=== PATIENT | male | born 1935 | race Caucasian/White ===

== ENCOUNTER → 2017-04-18 | Outpatient (CLI) | payer OTHER | LOC: BHFA 11:30 | PROVIDERS: ATTEND Internal Medicine Cardiovascular Disease | DX: R00.2 Palpitations (principal); Z95.2 Presence of prosthetic heart valve ==

== ENCOUNTER → 2017-09-21 | Outpatient (CLI) | payer OTHER, BC | LOC: BMCIMAGING 08:24 | PROVIDERS: ATTEND Emergency Medicine | DX: S69.92XA Unspecified injury of left wrist, hand and finger(s), initial encounter (principal); W19.XXXA Unspecified fall, initial encounter ==

== ENCOUNTER 2017-09-25 12:38 | Observation (INO) | payer OTHER, BC ==
[2017-09-25] MEDS ORDERED: NS 1,000 ML IV ONE (12:57)
[2017-09-25] MEDS ORDERED: BACITRACIN IRRIGATION/NS 50,000 UNITS/1,000 ML BTL IRR ONE (12:57)
[2017-09-25] MEDS ORDERED: DIAZEPAM 5 MG TAB PO ONE (12:57)
[2017-09-25] MEDS ORDERED: diphenhydrAMINE 25 MG CAP PO ONE (12:57)
--- NOTE | 2017-09-25 13:20 | CPEKG ---
Heart Rate: 73 RR Interval: 822 P-R Interval: 208 QRSD Interval: 98 QT Interval: 400 QTC Interval: 441 P Cheshire: 56 QRS Cheshire: 86 T Wave Cheshire: 55 EKG Severity - OTHERWISE NORMAL ECG - EKG Impression: SINUS RHYTHM EKG Impression: BORDERLINE RIGHT AXIS DEVIATION Electronically Signed By: Faustino Elliott 25-Sep-2017 13:37:32
[2017-09-25] MEDS ORDERED: VANCOMYCIN 1 GM in NS 250 ML IV ONE (13:30)
[2017-09-25 13:38] LABS: PLATELET COUNT 93 10^3/uL (150-400)
[2017-09-25 13:48] LABS: INR 1.08 (0.83-1.16); PROTIME(PATIENT) 14.2 SEC (12.0-15.0)
--- NOTE | 2017-09-25 13:55 | PDGENHP ---
History & Physical Chief Complaint: chronotropic incompetence History of Present Illness: prior avr, ablation for at Relevant Physical Exam: s1s2 rrr. cta. ao3 Cardiorespiratory Assessment: sinus bradycardia. chronotropic incompetence for pacemaker implant
--- NOTE | 2017-09-25 13:56 | PDPROPOC ---
Sedation Plan of Care Sedation Plan of Care: vital signs stable, mental status noted, patient educated of risks, benefits, alternatives, patient can tolerate sedation ASA Classification: ASA 2 Planned drugs: fentanyl, midazolam Mallampati Score: Class 1 Mallampati Reference Image: Patient passed 3-3-2 rule?: Yes
[2017-09-25] MEDS ORDERED: fentaNYL 100 MCG/2 ML INJ ONE (14:07)
[2017-09-25] MEDS ORDERED: LIDO/EPI 1% **for epidural** 30 ML SDV ONE (14:07)
[2017-09-25] MEDS ORDERED: IOPAMIDOL (ISOVUE-300) 50 ML VIAL ONE (14:07)
[2017-09-25] MEDS ORDERED: MIDAZOLAM 2 MG/2 ML VIAL ONE (14:07)
[2017-09-25] MEDS ORDERED: LIDOCAINE 1% 300 MG/30 ML SDV ONE (14:07)
[2017-09-25] MEDS ORDERED: BUPIVACAINE 0.5% 30 ML SDV ONE (14:08)
--- NOTE | 2017-09-25 16:28 | CPEKG ---
Heart Rate: 60 RR Interval: 1000 QRSD Interval: 98 QT Interval: Invalid QTC Interval: Invalid QRS Ilion: 92 T Wave Ilion: 48 EKG Severity - ABNORMAL ECG - EKG Impression: Sinus rhythm EKG Impression: Frequent PAC Electronically Signed By: Faustino Elliott 25-Sep-2017 17:33:45
--- NOTE | 2017-09-25 16:36 | EPPROC ---
Electrophysiology Procedure Note: PROCEDURE PERFORMED: 1. Implantation of an A/V Pacemaker 2. Subclavian vein angiography 3. Fluoroscopy INDICATION: Chronotropic incompetence PROCEDURE NOTE: Patient presented to the cardiac catheterization laboratory in a fasting, post absorptive state . EP RN administered sedation. The left infraclavicular area was prepped and draped in the usual sterile fashion. Lidocaine plus bupivacaine was used for local anesthesia. Left subclavian venography was performed by injection of iodinated contrast into the left antecubital vein. This was done to assure patency of the vein and also to assess for any anatomical aberrations. Using a combination of blunt and sharp dissection and electrocautery, the dissection was carried down to the prepectoral fascia. A pocket was made in this anatomical plane. All bleeding was controlled with electrocautery. The pocket was packed with gauze soaked in antibiotic solution. Fluoroscopy was utilized during the entire procedure for venous access and placement of the leads. Using a direct stick technique the left extrathoracic axillary vein was accessed with 2 sticks using the modified Seldinger technique. Placement of the guidewires into the venous system was confirmed by low-pressure blood return and also by visualizing the guidewires advancing into the inferior vena cava. A purse string suture was applied around the guidewires. Two #7 Yoruba sheaths were advanced under fluoroscopic guidance over the guidewire. An active fixation ventricular lead was advanced into the right ventricular apex and screwed in place. An active fixation atrial lead was advanced into the right atrial appendage and screwed in place. The peel away sheaths were removed. Pacing thresholds, sensing parameters and lead impedances were measured. There was no diaphragmatic stimulation at maximum output. The leads were sutured to the prepectoral fascia with 3 nonabsorbable sutures each. The pocket was again inspected for any bleeding. The leads were attached to the pacemaker securely. The pacemaker was inserted into the pocket and secured in place with a nonabsorbable suture. Fluoroscopy was performed in NDIAYE and LUXEMBOURGER planes to verify right-sided placement of the leads. Also fluoroscopy of the pacemaker pocket was performed. The pacemaker pocket was closed in 3 layers with absorbable monocryl sutures and sushant. Appropriate dressing was applied. The patient left the cardiac catheterization laboratory in stable condition. Serial Numbers: 1. Device: [facility] Assurity MRI SN [id number] 2. Atrial Lead: [facility] Tendril 2088TC SN [id number] 3. Ventricular Lead: [facility] Tendril 2088TC SN [id number] Stimulation Thresholds & Impedance Measurements: 1. Atrial Lead P 2.2 mV 474 ohm 0.7 V 0.5 ms 2. Ventricular Lead R 7.7 mV R 719 ohm 0.4 V 0.5 ms Celestino Pacing Parameters 1. Pacing mode: DDDR 2. Lower rate: 60ppm 3. Upper tracking rate: 130 ppm 4. Upper sensor rate: 130 ppm Patient Problems: Problems Problem Status Onset Chronotropic incompetence Acute
[2017-09-25] MEDS: HYDROCODONE/APAP 5/325 TAB PO PRN (18:05)
[2017-09-25] MEDS: PRESERVISION AREDS2 FORMULA EYE VIT 1 EACH PO SCH (18:05)
[2017-09-25] MEDS: ALPRAZolam 0.25 MG TAB PO SCH (20:19)
[2017-09-25] MEDS ORDERED: NON-FORMULARY NEW DRUG (Vit A/Vit C/Vit E/Zinc/Copper [Preservision Areds Tablet] 1 EACH) PO SCH (21:00)
[2017-09-25] MEDS ORDERED: LISINOPRIL 2.5 MG TAB PO SCH (21:00)
[2017-09-26] MEDS: HYDROCODONE/APAP 5/325 TAB PO PRN ×2 (03:04→09:34)
[2017-09-26 04:26] LABS: PLATELET COUNT 92 10^3/uL (150-400)
[2017-09-26] MEDS ORDERED: ASPIRIN 325 MG TAB PO SCH (09:00)
[2017-09-26] MEDS ORDERED: SERTRALINE HCL 50 MG TAB PO SCH (09:00)
--- NOTE | 2017-09-26 09:00 | CPEKG ---
Heart Rate: 73 RR Interval: 822 P-R Interval: 208 QRSD Interval: 94 QT Interval: 412 QTC Interval: 454 P Nimitz: 68 QRS Nimitz: 99 T Wave Nimitz: 71 EKG Severity - BORDERLINE ECG - EKG Impression: SINUS RHYTHM EKG Impression: RIGHT AXIS DEVIATION EKG Impression: BORDERLINE R WAVE PROGRESSION, ANTERIOR LEADS EKG Impression: BORDERLINE T ABNORMALITIES, ANT-LAT LEADS Electronically Signed By: Manuel Olivarez 26-Sep-2017 09:35:02
[2017-09-26] MEDS: PRESERVISION AREDS2 FORMULA EYE VIT 1 EACH PO SCH (09:34)
[2017-09-26] MEDS: ALPRAZolam 0.25 MG TAB PO SCH (09:41)
--- NOTE | 2017-09-26 13:37 | ASDISCHSUM ---
Discharge Information Plan Status:Home with No Needs Medically Cleared to Leave:09/26/2017 Discharge Date:09/26/2017 12:27 PM CM D/C Disposition:Home, Routine, Self-Care ADT D/C Disposition:Home, Routine, Self-Care Projected Discharge Date:09/26/2017 12:27 PM Transportation at D/C: Discharge Delay Reason: Follow-Up Date:09/26/2017 12:27 PM Discharge Slot: Final Diagnosis: Placement Information Patient Contact Information Contact Name:DEMETRIO Relationship: [address] [facility] City:[place] Alternate Phone: State/Zip Code:[place] [address] Email: Financial Information Financial Class:Medicare Primary Plan Desc:MEDICARE OUTPATIENT Primary Plan Number:[id number] Secondary Plan Desc: OUT OF STATE [facility] Secondary Plan Number:[id number] Assessment Information LACE LACE Length of stay for Answers: Less than 1 day current admission Acuity / Level of Answers: No Care: Did the patient have an inpatient admission? Comorbidities - select Answers: Other Notes: sinus annalisa, chronotrop ic all that apply incompetence for pacemaker implant, # of Emergency department Answers: 1-2 visits in the last 6 months Score: 2 Date Signed: 09/26/2017 01:36 PM Electronically Signed By:Aida Ornelas RN Intervention Information Intervention Type:*CHAS-Signed Date of Service:09/26/2017 10:39 AM Patient Type:Observation Staff Member:Bonnie Stark Hours: Discipline: Severity: Comment:
[2017-09-26 13:55] VITALS: BP 109/66
--- NOTE | 2017-09-26 14:04 | GDS ---
[f rep st] DISCHARGE SUMMARY ADMISSION DIAGNOSES: 1. Bradycardia. 2. Chronotropic incompetence. 3. Planned pacemaker placement. DISCHARGE DIAGNOSES: 1. Status post successful pacemaker implantation. 2. Bradycardia. 3. Chronotropic incompetence. COURSE OF HOSPITALIZATION: This gentleman was seen in the clinic by Dr. Faustino Elliott on June 15. He was referred back to Dr. Elliott from Dr. Mccoy due to lightheadedness with exercise, at times s o severe that he would have to sit down. He had no syncopal events. It was recommended, after place ment of a Holter monitor showing minimum rate of 46 beats per minute and maximum of 84 beats per melani te with exertional lightheadedness as well as ventricular pauses up to 2.2 seconds and nonsustained a trial tachycardia, to proceed with a permanent pacemaker due to the chronotropic incompetence. He wa s in agreement with the surgery. He was taken to the EP lab by Dr. Faustino Elliott on September 25, 2017, whe re he placed a permanent pacemaker with no complications. He has been up ambulating with no lighthea dedness or dizziness. His pacemaker site is intact with no bleeding, induration, and only mild tende rness at this time. He is currently stable for discharge. ALLERGIES: Penicillin, sulfa, and amoxicillin. DISCHARGE MEDICATIONS: Zoloft 50 mg daily, Xanax 0.5 mg twice daily, multivitamin 1 tablet twice deep ly, lisinopril 2.5 mg daily, and aspirin 325 mg daily. PACEMAKER PLACEMENT: 1. [place] pacemaker placement, device serial number is [facility] [id number]. 2. Atrial lead, [facility] tendril, [id number] [id number]. 3. Ventricular lead, [facility] tendril 2087PC SN [id number]. SHIMON PACING PARAMETERS: 1. Pacing mode DDDR. 2. Lower rate 60 beats per minute. 3. Upper tracking rate 130 beats per minute. 4. Upper sensor rate 130 beats per minute. REASON FOR PLACEMENT: 1. Chronotropic incompetence. 2. Bradycardia. IMAGING: Chest x-ray on 09/26/2017 shows: 1. Clear lungs. 2. No pneumothorax following placement of left anterior chest wall dual lead pacemaker. 3. Midline sternal wires and prosthetic heart valve in good position. 4. Left anterior chest wall dual lead pacemaker is well situated with leads in the right atrium and right ventricle. DISCHARGE INSTRUCTIONS: At this time, he currently is stable for discharge. 1. Full left arm restrictions for 4 weeks. No lifting, pushing, or pulling greater than 10 pounds. 2. Avoid getting pacemaker site wet. 3. Okay to use Tylenol every 4 to 6 hours for pain, not to exceed 3000 mg daily. 4. Follow up with Dr. Elliott in 4 weeks. 5. Pacemaker check and wound check evaluation in 1 week at [facility]. He has an appointments al ready scheduled. His is present and all questions have been answered. At this time he is currently stable for eric tao. /[id number]/MODL
[2017-09-26] MEDS ORDERED: LISINOPRIL 2.5 MG TAB PO SCH (16:00)
[2017-09-27] MEDS ORDERED: MULTIVITAMINS W-MINERALS 1 EACH TAB PO SCH (09:00)
[2017-09-27] MEDS ORDERED: MULTIVITAMINS W MINERALS PO SCH (09:00)
[2017-09-27] MEDS ORDERED: LUT PO SCH (09:00)
== END 2017-09-26 12:27 | disposition home or self-care (01) ==
LOC: FCATH 12:38 → F2W 15:48
PROVIDERS: ADMIT Internal Medicine Cardiovascular Disease; ATTEND Internal Medicine Cardiovascular Disease
PROC: 0JH606Z Insertion of Pacemaker, Dual Chamber into Chest Subcutaneous Tissue and Fascia, Open Approach (ICD-10-PCS; principal; 2017-09-25)
PROC: 02HK3JZ Insertion of Pacemaker Lead into Right Ventricle, Percutaneous Approach (ICD-10-PCS; principal; 2017-09-25)
PROC: 02H63JZ Insertion of Pacemaker Lead into Right Atrium, Percutaneous Approach (ICD-10-PCS; principal; 2017-09-25)
DX: R00.1 Bradycardia, unspecified (principal); I45.89 Other specified conduction disorders
CPT/HCPCS: 33208; 71045; 71046; 93005; C1785; C1898; J2250; J3010; J3370; Q9967

== ENCOUNTER → 2018-04-17 | Outpatient (CLI) | payer OTHER, BC | LOC: BMCIMAGING 08:26 | PROVIDERS: ATTEND Family Medicine | DX: J90 Pleural effusion, not elsewhere classified (principal); J44.9 Chronic obstructive pulmonary disease, unspecified ==

== ENCOUNTER 2018-04-18 08:32 | Emergency (ER) | payer OTHER, BC ==
--- NOTE | 2018-04-18 08:50 | EDPHY ---
H & P Stated Complaint: Recent pnuemonia Dx=Azithromycin. Increased HR since, Hx A- flutter Time Seen by Provider: 04/18/18 08:46 HPI/ROS: CHIEF COMPLAINT: Palpitations HISTORY OF PRESENT ILLNESS: The patient presents the ED with a 1 day history of palpitations reminiscent of his prior history of atrial flutter. The patient is not anticoagulated. He does have a history of a pacemaker for symptomatic bradycardia. The patient was seen at urgent care yesterday with complaints of pleuritic chest pain and neck discomfort. He was ultimately diagnosed with a pneumonia. He was not having symptoms of productive cough or fever. He was started on azithromycin yesterday. The patient went into atrial fibrillation flutter today. Patient continues to have some inspiratory chest pain. He denies fever or productive cough. He denies any asymmetric calf pain or swelling. The patient denies exertional chest pain. The patient states that his heart rate is typically in the 60-80 range. REVIEW OF SYSTEMS: A comprehensive 10 point review of systems is otherwise negative aside from elements mentioned in the history of present illness. 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, 2009 Ablation, anxiety , depression, labile blood pressure - Social History Smoking Status: Former smoker - Physical Exam Exam: General Appearance: Alert, no distress Eyes: Pupils equal and round no pallor or injection ENT, Mouth: Mucous membranes moist Respiratory: There are no retractions, lungs are clear to auscultation Cardiovascular: Tachycardic, irregular Gastrointestinal: Abdomen is soft and nontender, no masses, bowel sounds normal Neurological: 5/5 strength all 4 extremities Skin: Warm and dry, no rashes Musculoskeletal: Neck is supple nontender Extremities: symmetrical, full range of motion, no clinical evidence of DVT Psychiatric: Patient is oriented X 3, there is no agitation Constitutional: Initial Vital Signs Temperature (C) 36.8 C 04/18/18 08:43 Heart Rate 102 H 04/18/18 08:43 Respiratory Rate 18 04/18/18 08:43 Blood Pressure 117/45 L 04/18/18 08:43 O2 Sat (%) 94 04/18/18 08:43 O2 Delivery Mode Room Air Allergies/Adverse Reactions: penicillin G [Penicillin G] Allergy (Unknown, Verified 04/18/18 08:43) Unknown Sulfa (Sulfonamide Antibiotics) Allergy (Unknown, Verified 04/18/18 08:43) Unknown amoxicillin Allergy (Verified 04/18/18 08:43) azithromycin Allergy (Verified 04/18/18 08:43) enalapril Allergy (Verified 04/18/18 08:43) enalaprilat Allergy (Verified 04/18/18 08:43) Home Medications: Medication Instructions Recorded ALPRAZolam [Xanax 0.5 MG (*)] 0.5 mg PO BID 04/09/11 Lisinopril 2.5 mg PO DAILY@16 04/09/11 Multivitamins W-Minerals/Lut 1 each PO Q2D 04/09/11 [CENTRUM SILVER TABLET] Sertraline HCl [Zoloft 50mg (*)] 50 mg PO DAILY 04/09/11 Aspirin [Aspirin 325 mg (*)] 325 mg PO DAILY 09/18/17 Vit A/Vit C/Vit E/Zinc/Copper 1 each PO BID 09/18/17 [Preservision Areds Tablet] Medical Decision Making - Diagnostics EKG Interpretation: EKG: Complete interpretation has been separately recorded in the [facility] archive. Summary impression: Atrial fibrillation/flutter, rate 92 Imaging Results: Imaging Impressions Chest/Thorax CTA 04/18/18 09:39 Impression: 1. No evidence of pulmonary embolus using CT protocol. 2. Postoperative changes from previous aortic valve repair. 3. 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 Findings discussed with Neftali Prather M.D. at 10:35 hour, 04/18/2018. ED Course/Re-evaluation: ED course: The patient presents to the emergency department with complaints of atrial fibrillation and flutter. The patient was seen at the urgent care center yesterday and diagnosed with pneumonia for symptoms of pleuritic chest pain. The patient is not currently anticoagulated. He continues to have pleuritic chest pain without symptoms suggestive of pneumonia. The patient was noted to have an elevated D-dimer and recurrent atrial fibrillation. A CT pulmonary angiogram has been ordered for further evaluation of his pleuritic chest pain and arrhythmia. CT pulmonary angiogram demonstrates no evidence of PE or pneumonia. I did review this with his regular physician ophthalmologist Dr. Elliott. The patient will be restarted on Eliquis and diltiazem 120 XR The patient will follow up with Dr. Elliott for a recheck. The patient understands to return to the ED for markedly worsening symptoms or other concerns. Differential Diagnosis: Differential diagnosis considered includes atrial fibrillation, atrial flutter, pulmonary embolism, pneumonia, congestive heart failure - Data Points Laboratory Results: Laboratory Results 04/18/18 08:55 04/18/18 08:55 04/18/18 04/18/18 04/18/18 08:58 08:55 08:55 WBC RBC Hgb Hct MCV MCH MCHC RDW Plt Count MPV Neut % (Auto) Lymph % (Auto) Archuleta % (Auto) Eos % (Auto) Baso % (Auto) Nucleat RBC Rel Count Absolute Neuts (auto) Absolute Lymphs (auto) Absolute Monos (auto) Absolute Eos (auto) Absolute Basos (auto) Absolute Nucleated RBC Immature Gran % Immature Gran # D-Dimer 2.66 ug/mLFEU H ug/mLFEU (0.00-0.50) Sodium 135 mEq/L mEq/L (135-145) Potassium 4.8 mEq/L mEq/L (3.3-5.0) Chloride 103 mEq/L mEq/L (97-110) Carbon Dioxide 26 mEq/l mEq/l (22-31) Anion Gap 6 mEq/L mEq/L (6-14) BUN 26 mg/dL H mg/dL (7-23) Creatinine 1.1 mg/dL mg/dL (0.7-1.3) Estimated GFR > 60 Glucose 101 mg/dL H mg/dL (70-100) Calcium 9.2 mg/dL mg/dL (8.5-10.4) POC Troponin I 0.02 ng/mL ng/mL (0.00-0.08) Troponin I 0.019 ng/mL ng/mL (0.000-0.034) 04/18/18 08:55 WBC 8.18 10^3/uL 10^3/uL (3.80-9.50) RBC 4.60 10^6/uL 10^6/uL (4.40-6.38) Hgb 15.1 g/dL g/dL (13.7-17.5) Hct 42.4 % % (40.0-51.0) MCV 92.2 fL fL (81.5-99.8) MCH 32.8 pg pg (27.9-34.1) MCHC 35.6 g/dL g/dL (32.4-36.7) RDW 13.9 % % (11.5-15.2) Plt Count 113 10^3/uL L 10^3/uL (150-400) MPV 10.9 fL fL (8.7-11.7) Neut % (Auto) 74.7 % H % (39.3-74.2) Lymph % (Auto) 11.2 % L % (15.0-45.0) Archuleta % (Auto) 12.2 % % (4.5-13.0) Eos % (Auto) 1.3 % % (0.6-7.6) Baso % (Auto) 0.4 % % (0.3-1.7) Nucleat RBC Rel Count 0.0 % % (0.0-0.2) Absolute Neuts (auto) 6.10 10^3/uL 10^3/uL (1.70-6.50) Absolute Lymphs (auto) 0.92 10^3/uL L 10^3/uL (1.00-3.00) Absolute Monos (auto) 1.00 10^3/uL H 10^3/uL (0.30-0.80) Absolute Eos (auto) 0.11 10^3/uL 10^3/uL (0.03-0.40) Absolute Basos (auto) 0.03 10^3/uL 10^3/uL (0.02-0.10) Absolute Nucleated RBC 0.00 10^3/uL 10^3/uL (0-0.01) Immature Gran % 0.2 % % (0.0-1.1) Immature Gran # 0.02 10^3/uL 10^3/uL (0.00-0.10) D-Dimer Sodium Potassium Chloride Carbon Dioxide Anion Gap BUN Creatinine Estimated GFR Glucose Calcium POC Troponin I Troponin I Point of Care Test Results: Chemistry 04/18/18 08:58 POC Troponin I 0.02 ng/mL ng/mL (0.00-0.08) Departure - Departure Disposition: Home, Routine, Self-Care Clinical Impression: Atrial fibrillation Condition: Good Instructions: A-fib (Atrial Fibrillation) (ED) Additional Instructions: 1. Please stop taking azithromycin as you have no evidence of pneumonia on your chest x-ray or CT scan. 2. Your physician ophthalmologist does recommend resuming Eliquis and diltiazem as prescribed in the ED. 3. Please contact Dr. Elliott to schedule a follow-up visit. 4. Please return to the ED for markedly worsening symptoms of chest pain, shortness of breath, uncontrolled high heart rate or other concerns. Referrals: Faustino Elliott MD [Medical Doctor] - As per Instructions
[2018-04-18 09:36] LABS: PLATELET COUNT 113 10^3/uL (150-400)
[2018-04-18] MEDS ORDERED: IOPAMIDOL (ISOVUE 370) 100 ML BTL IV ONE (09:48)
--- NOTE | 2018-04-18 10:14 | CPEKG ---
Test Reason : OPEN Blood Pressure : / mmHG Vent. Rate : 092 BPM Atrial Rate : 134 BPM P-R Int : 075 ms QRS Dur : 092 ms QT Int : 382 ms P-R-T Axes : 000 083 064 degrees QTc Int : 473 ms Afib/flut and V-paced complexes Borderline right axis deviation Confirmed by Neftali Prather ([id number]) on 04/18/2018 10:14:13 AM Referred By: Confirmed By:Neftali Prather
[2018-04-18 11:22] VITALS: BP 133/76
== END 2018-04-18 11:22 | disposition home or self-care (01) ==
DX: I48.91 Unspecified atrial fibrillation (principal); I48.92 Unspecified atrial flutter; I25.10 Atherosclerotic heart disease of native coronary artery without angina pectoris; R09.89 Other specified symptoms and signs involving the circulatory and respiratory systems; Z79.82 Long term (current) use of aspirin; Z95.0 Presence of cardiac pacemaker; Z95.2 Presence of prosthetic heart valve; Z87.891 Personal history of nicotine dependence
CPT/HCPCS: 71275; 93005; 99285; Q9967; 84484-PO

== ENCOUNTER → 2018-05-21 | Outpatient (CLI) | payer OTHER, BC | LOC: BHFA 10:45 | PROVIDERS: ATTEND Internal Medicine Cardiovascular Disease | DX: I48.91 Unspecified atrial fibrillation (principal); Z95.2 Presence of prosthetic heart valve ==

== ENCOUNTER → 2018-06-11 | Outpatient (CLI) | payer OTHER, BC | LOC: BHFA 08:30 | PROVIDERS: ATTEND Internal Medicine Cardiovascular Disease | DX: R07.9 Chest pain, unspecified (principal); I48.91 Unspecified atrial fibrillation | CPT/HCPCS: 78452; 93017; A9500; J2785 ==

== ENCOUNTER 2018-06-12 07:53 | Day surgery (SDC) | payer OTHER, BC ==
[2018-06-12] MEDS ORDERED: MIDAZOLAM 2 MG/2 ML VIAL IVP ONE (07:54)
[2018-06-12] MEDS ORDERED: BENZOCAINE UNIT DOSE SPRAY HURRICAINE MM ONE (07:54)
[2018-06-12] MEDS ORDERED: fentaNYL 100 MCG/2 ML INJ IVP ONE (07:54)
[2018-06-12] MEDS ORDERED: NS 500 ML IV ONE (07:54)
--- NOTE | 2018-06-12 09:15 | PDANEPAE ---
ANE History of Present Illness here for MANPREET ANE Past Medical History - Cardiovascular History Hx Hypertension: No Hx Arrhythmias: Yes Hx Chest Pain: No Hx Coronary Artery / Peripheral Vascular Disease: No Hx CHF / Valvular Disease: Yes Hx Palpitations: No - Pulmonary History Hx COPD: No Hx Asthma/Reactive Airway Disease: No Hx Recent Upper Respiratory Infection: No Hx Oxygen in Use at Home: No Hx Sleep Apnea: No - Endocrine History Hx Diabetes: No Hypothyroid: No Hyperthyroid: No - Chronic Pain History Chronic Pain: No ANE Review of Systems Review of systems is: negative Review of Systems: - Exercise capacity Exercise capacity: >=4 METS ANE Patient History - Allergies Allergies/Adverse Reactions: penicillin G [Penicillin G] Allergy (Unknown, Verified 04/18/18 08:43) Unknown Sulfa (Sulfonamide Antibiotics) Allergy (Unknown, Verified 04/18/18 08:43) Unknown amoxicillin Allergy (Verified 04/18/18 08:43) azithromycin Allergy (Verified 04/18/18 08:43) enalapril Allergy (Verified 04/18/18 08:43) enalaprilat Allergy (Verified 04/18/18 08:43) - Home Medications Home medications: home medication list seen and reviewed Home Medications: ALPRAZolam [Xanax 0.5 MG (*)] 0.5 mg PO BID 04/09/11 [Last Taken Unknown] Lisinopril 2.5 mg PO DAILY@16 04/09/11 [Last Taken Unknown] Multivitamins W-Minerals/Lut [CENTRUM SILVER TABLET] 1 each PO Q2D 04/09/11 [ Last Taken Unknown] Sertraline HCl [Zoloft 50mg (*)] 50 mg PO DAILY 04/09/11 [Last Taken Unknown] Aspirin [Aspirin 325 mg (*)] 325 mg PO DAILY 09/18/17 [Last Taken Unknown] Vit A/Vit C/Vit E/Zinc/Copper [Preservision Areds Tablet] 1 each PO BID [Last Taken Unknown] - NPO status NPO Status: no food or drink >8 hours - Smoking Hx Smoking Status: Former smoker ANE Physical Exam - Airway Neck exam: FROM Mallampati Score: Class 1 - Pulmonary Pulmonary: no respiratory distress - Cardiovascular Cardiovascular: regular rate and rhythym - ASA Status ASA Status: II ANE Anesthesia Plan Anesthesia Plan: GA with mask
[2018-06-12] MEDS ORDERED: PROPOFOL 200 MG/20 ML VIAL ONE ×2 (09:25→09:54)
--- NOTE | 2018-06-12 09:30 | PDHPUP ---
History & Physical Update H&P update statement: This history and physical update is based on an assessment of the patient which was completed after admission or registration (within 24 hours), but prior to the surgery/procedure. H&P update: H&P reviewed & patient examined, no change in patient's condition since H&P completed
--- NOTE | 2018-06-12 10:23 | POSTANESTH ---
Post Anesthetic Evaluation Cardiovascular Status: Normal, Stable Respiratory Status: Normal, Stable Level of Consciousness/Mental Status: Can Participate in Eval Pain Control: Adequate, Prn Tx Ordered Nausea/Vomiting Control: Adequate, Prn Tx Ordered Complications Possibly Related to Anesthesia: None Noted
--- NOTE | 2018-06-12 11:49 | ECHO ---
[email or web address] [place] [id number] Main: [phone] Fax: Transesophageal Echocardiography Name: PAUL ZAPATA MR#: [id number] Study Date: 06/12/2018 Study Time: 09:38 AM Date of : 1935 Age: 83 year(s) Height: ( ) Weight: ( ) BSA: Gender: Male Examination: MANPREET Indication: assess AI; h/o AVR and root Image Quality: Adequate Contrast: Requested by: Ira Hitchcock Heart Rate: Rhythm: BP: / Procedure Staff Brush Loader And Handle Attacher: Irma Schmidt [facility] Reading Physician: Ira Hitchcock MD Requesting Provider: MANPREET Exam Details Conclusions: Normal size left ventricle. Normal global systolic LV function. The ejection fraction is visually estimated to be 55 %. Small left to right shunt across the interatrial septum noted with color flow Doppler. No thrombus in left appendage. There is a pacemaker lead noted in the right atrium. There is mild thickening of the mitral valve leaflets. Mild to moderate mitral regurgitation. 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 The non-coronary cusp appears thickened and with restricted mobility. Moderate-severe prosthetic regurgitation. Mild flow reversal noted iin the SSN. No vegetation on aortic valve prosthesis. Mild tricuspid regurgitation is present. The patient is s/p Bentall procedure. Ascending aortic graft appears normal. Mild plaque in the descending aorta. Measurements: Chambers Valvular Assessment AV/MV Valvular Assessment TV/PV Normal Normal Normal Name Value Range Name Value Range Name Value Range IVSd (2D): 1.1 cm (0.6 cm-1.1 AR (PHT): 456 ms ( - ) cm) MV meanP mmHg ( - ) MVA (Vmax): 9.9 m/s ( - ) Patient: PAUL ZAPATA Study Date: 06/12/2018 Page 1 of 2 09:38 AM LVDd (2D): 5.0 cm (4.2 cm-5.9 cm) LVDs (2D): 3.1 cm (2.1 cm-4 cm) LVPWd (2D): 0.9 cm (0.6 cm-1 cm) LVOTd 2.6 cm 2.6 cm mm LVEF (2D): 69 (>=54 %) Visual EF: 55 % Additional Measurements: Valvular Assessment AV/MV Name Value MV Annulus: 3.3 cm MV VTI: 13.00 cm MR ERO: 0.250 cm2 MR PISA radius: 7 mm MR Reg. Volume: 66 ml MR Reg. Fraction: 59 % AR Vmax: 3.66 cm/s Findings: Left Ventricle: Normal size left ventricle. Normal global systolic LV function. The ejection fraction is visually estimated to be 55 %. Left Atrium: Small left to right shunt across the interatrial septum noted with color flow Doppler. No thrombus is noted in the left atrium. Left Atrial Appendage: No thrombus in left appendage. Right Atrium: There is a pacemaker lead noted in the right atrium. Mitral Valve: There is mild thickening of the mitral valve leaflets. Mild to moderate mitral regurgitation. 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 The non-coronary cusp appears thickened and with restricted mobility. Moderate-severe prosthetic regurgitation. Mild flow reversal noted iin the SSN. No vegetation on aortic valve prosthesis. Tricuspid Valve: Mild tricuspid regurgitation is present. Pulmonic Valve: There is no pulmonic regurgitation seen. Aorta: The patient is s/p Bentall procedure. Ascending aortic graft appears normal. Mild plaque in the descending aorta. the patient is status post Bentall procedure. Ascending aortic graft appears normal. Mild plaque in the visualized portions of the descending aorta. Pericardium: No pericardial effusion. l1n (No Signature Object) Patient: PAUL ZAPATA Study Date: 06/12/2018 Page 2 of 2 09:38 AM [id number]
== END 2018-06-12 12:20 | disposition home or self-care (01) ==
LOC: FCATH 07:53
PROVIDERS: ATTEND Internal Medicine Cardiovascular Disease
PROC: B245ZZ4 Ultrasonography of Left Heart, Transesophageal (ICD-10-PCS; principal; 2018-06-12)
DX: I35.1 Nonrheumatic aortic (valve) insufficiency (principal); I47.1 Supraventricular tachycardia; Z95.2 Presence of prosthetic heart valve; R07.9 Chest pain, unspecified; I49.5 Sick sinus syndrome
CPT/HCPCS: J2704

== ENCOUNTER 2018-06-25 05:58 | Day surgery (SDC) | payer OTHER, BC ==
[2018-06-25] MEDS ORDERED: ASPIRIN EC 325 MG TAB PO ONE ×2 (06:16→06:50)
[2018-06-25] MEDS ORDERED: diphenhydrAMINE 25 MG CAP PO ONE ×2 (06:16→06:50)
[2018-06-25] MEDS ORDERED: NS 1,000 ML IV ONE (06:16)
[2018-06-25] MEDS ORDERED: DIAZEPAM 5 MG TAB PO ONE (06:16)
[2018-06-25] MEDS ORDERED: FAMOTIDINE 20 MG TAB PO ONE (06:16)
--- NOTE | 2018-06-25 06:44 | PDPROPOC ---
Sedation Plan of Care Sedation Plan of Care: mental status noted, patient educated of risks, benefits , alternatives, patient can tolerate sedation ASA Classification: ASA 2 Planned drugs: fentanyl, midazolam Mallampati Score: Class 2 Mallampati Reference Image: Patient passed 3-3-2 rule?: Yes
[2018-06-25] MEDS ORDERED: DIAZEPAM 5 MG TAB ONE (06:50)
[2018-06-25] MEDS ORDERED: FAMOTIDINE 20 MG TAB ONE (06:50)
[2018-06-25 07:03] LABS: INR 1.09 (0.83-1.16); PROTIME(PATIENT) 14.3 SEC (12.0-15.0)
[2018-06-25 07:08] LABS: PLATELET COUNT 107 10^3/uL (150-400)
[2018-06-25] MEDS ORDERED: IOPAMIDOL (ISOVUE-370) 150 ML BTL IV ONE (07:08)
[2018-06-25] MEDS ORDERED: fentaNYL 100 MCG/2 ML INJ ONE (07:08)
[2018-06-25] MEDS ORDERED: LIDOCAINE 1% 300 MG/30 ML SDV ONE (07:08)
[2018-06-25] MEDS ORDERED: MIDAZOLAM 2 MG/2 ML VIAL ONE (07:08)
[2018-06-25] MEDS ORDERED: CLOPIDOGREL BISULFATE 75 MG TAB PO ONE ×2 (07:15)
[2018-06-25] MEDS ORDERED: hydrALAZINE 20 MG/ML VIAL ONE (07:50)
[2018-06-25] MEDS ORDERED: HYDROCODONE/APAP 5/325 TAB PO PRN (08:06)
[2018-06-25] MEDS ORDERED: ATROPINE SULFATE 1 MG/10 ML SYR IVP PRN (08:06)
[2018-06-25] MEDS ORDERED: ONDANSETRON 4 MG/2 ML VIAL IVP PRN (08:06)
[2018-06-25] MEDS ORDERED: OXYCODONE/APAP 5/325 TAB PO PRN (08:06)
[2018-06-25] MEDS ORDERED: NITROGLYCERIN 0.4 MG BTL SL PRN (08:06)
--- NOTE | 2018-06-25 09:40 | CPIP ---
DATE OF PROCEDURE: 06/25/2018 INDICATIONS: Bioprosthetic aortic valve degeneration/shortness of breath, pre TAVR. PROCEDURE: 1. Nonselective left groin sheathogram. 2. 7-Maltese sheath, left common femoral vein. 3. Right heart catheter with Duncan-Charlie catheter. 4. Bilateral selective coronary angiography. 5. Abdominal aortogram. 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 The patient has been complaining of increasing lethargy over the las t 6 months with shortness of breath. 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 Given these findings, the patient has consented for right and left heart catheterization in anticipation for eventual TAVR in SAVR procedure. The patient has been seen by [address] surgeons and needs to be a suitable candidate f or this procedure. DESCRIPTION OF PROCEDURE: After informed consent, the patient was brought to [facility] where the left groi n was prepped and draped in a sterile fashion. Using lidocaine, a short 6-Maltese sheath was introduc ed in the left common femoral artery, verified angiographically, a 7-Maltese sheath to the left common femoral vein. A Duncan-Charlie catheter was then advanced. Wedge pressure was mean of 12, A wave 19, V wave 17. PA pressure systolic 30, diastolic 13, mean of 20. RV pressure systolic 37, diastolic 1, e nd of 6. RA pressure mean of 5, A wave 8, V wave 7. Cardiac output was measured to be 5.2 by Amado w ith a Amado index of 2.7, AO sat 95%, PA sat 75%. Duncan-Charlie catheter was then removed. At this time, there was significant tortuosity of the left iliac system. Thus, we upsized the short 6-Maltese matute th to a 6-Maltese 25 cm sheath over an Amplatz long Super Stiff wire. A JL 4.5 catheter was advanced due to this excessive tortuosity and placed in the left coronary artery. Images of the left coronary artery revealed reimplanted left coronary artery with normal left circumflex artery which appeared t o be a codominant circulation. There was a large marginal 1 proximally which was healthy and free of disease. The LAD appeared to have 30% to 40% tubular mid disease. The LAD gave off a medium-sized diagonal artery which was healthy and free of disease. The distal LAD appeared widely patent. After these images were obtained, the JL 4.5 catheter was removed. The JR 4 catheter was advanced to the right coronary artery. Images of the right coronary artery revealed normal ostia of the RCA. The pr oximal RCA had mild, 10% to 20% disease. Distal RCA appeared to be healthy and free of disease. Aft er images were obtained, the JR 4 catheter was removed. A pigtail catheter was advanced into the nathan cending aorta. Abdominal aortogram showed a large distal ascending aorta, large bilateral common ext ernal and internal iliac arteries with some tortuosity. Common femoral arteries appeared widely woods nt bilateral. At this time, the pigtail catheter was removed over the 0.035 wire. The catheter was removed over the wire. The left groin was closed with manual pressure. Patient tolerated the proced ure well with no complications. IMPRESSION: 1. 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 2. Normal cardiac output. 3. Normal pulmonic pressures. 4. Widely patent aortoiliac conduits. PLAN: The patient will have 3 hours of bed rest after his sheath is discontinued. He will have thompson tid ultrasound as well as CTAs of the chest, abdomen, and pelvis done today. I anticipate TAVR in VR procedure in 1 week's time. /[id number]/MODL
[2018-06-25] MEDS ORDERED: IOPAMIDOL (ISOVUE 370) 75 ML BTL IV ONE (09:47)
[2018-06-25] MEDS ORDERED: IOPAMIDOL (ISOVUE 370) 100 ML BTL IV ONE (09:47)
--- NOTE | 2018-06-25 16:24 | CPEKG ---
Test Reason : OPEN Blood Pressure : / mmHG Vent. Rate : 064 BPM Atrial Rate : 064 BPM P-R Int : 181 ms QRS Dur : 104 ms QT Int : 455 ms P-R-T Axes : -84 075 060 degrees QTc Int : 470 ms Sinus or ectopic atrial rhythm Probable left ventricular hypertrophy Compared with 04/18/2018 AF no longer present Confirmed by Ira Hitchcock ([id number]) on 06/25/2018 4:24:20 PM Referred By: Confirmed By:Ira Hitchcock
== END 2018-06-25 12:18 | disposition home or self-care (01) ==
LOC: FCATH 05:58
PROVIDERS: ATTEND Internal Medicine Cardiovascular Disease
PROC: 4A023N8 Measurement of Cardiac Sampling and Pressure, Bilateral, Percutaneous Approach (ICD-10-PCS; principal; 2018-06-25)
PROC: B2161ZZ Fluoroscopy of Right and Left Heart using Low Osmolar Contrast (ICD-10-PCS; principal; 2018-06-25)
PROC: B2111ZZ Fluoroscopy of Multiple Coronary Arteries using Low Osmolar Contrast (ICD-10-PCS; principal; 2018-06-25)
PROC: B4101ZZ Fluoroscopy of Abdominal Aorta using Low Osmolar Contrast (ICD-10-PCS; principal; 2018-06-25)
DX: T82.01XA Breakdown (mechanical) of heart valve prosthesis, initial encounter (principal); I35.9 Nonrheumatic aortic valve disorder, unspecified; R06.00 Dyspnea, unspecified; I25.10 Atherosclerotic heart disease of native coronary artery without angina pectoris; I48.91 Unspecified atrial fibrillation; Z95.2 Presence of prosthetic heart valve; M17.0 Bilateral primary osteoarthritis of knee; E78.00 Pure hypercholesterolemia, unspecified
CPT/HCPCS: 71275; 74174; 93005; 93456; 93880; C1769; J0360; J1644; J2250; J3010; Q9967

== ENCOUNTER 2018-07-02 06:16 | Inpatient (IN) | payer OTHER ==
[2018-07-02] MEDS ORDERED: NS 1,000 ML IV ONE (06:23)
--- NOTE | 2018-07-02 06:43 | PDPROPOC ---
Sedation Plan of Care Sedation Plan of Care: mental status noted, patient educated of risks, benefits , alternatives, patient can tolerate sedation ASA Classification: ASA 2 Planned drugs: other Mallampati Score: Class 3 Mallampati Reference Image: Patient passed 3-3-2 rule?: Yes
[2018-07-02] MEDS ORDERED: IOPAMIDOL (ISOVUE-370) 150 ML BTL IV ONE (07:07)
[2018-07-02] MEDS ORDERED: LIDOCAINE 1% 300 MG/30 ML SDV ONE (07:07)
[2018-07-02] MEDS ORDERED: ceFAZolin 2 GM/DEXTROSE 100 ML IV ONE (07:30)
--- NOTE | 2018-07-02 07:56 | PDANEPAE ---
ANE History of Present Illness 83 yo for tavr ANE Past Medical History - Cardiovascular History Hx Hypertension: No Hx Arrhythmias: Yes Hx Chest Pain: No Hx Coronary Artery / Peripheral Vascular Disease: No Hx CHF / Valvular Disease: Yes Hx Palpitations: No - Pulmonary History Hx COPD: No Hx Asthma/Reactive Airway Disease: No Hx Recent Upper Respiratory Infection: No Hx Oxygen in Use at Home: No Hx Sleep Apnea: No - Endocrine History Hx Diabetes: No - Chronic Pain History Chronic Pain: No ANE Review of Systems Review of Systems: - Exercise capacity METS (RN): 3 METS ANE Patient History - Allergies Allergies/Adverse Reactions: penicillin G [Penicillin G] Allergy (Unknown, Verified 04/18/18 08:43) Unknown Sulfa (Sulfonamide Antibiotics) Allergy (Unknown, Verified 04/18/18 08:43) Unknown amoxicillin Allergy (Verified 04/18/18 08:43) azithromycin Allergy (Verified 04/18/18 08:43) enalapril Allergy (Verified 04/18/18 08:43) enalaprilat Allergy (Verified 04/18/18 08:43) - Home Medications Home medications: home medication list seen and reviewed Home Medications: ALPRAZolam [Xanax 0.5 MG (*)] 0.5 mg PO BID 04/09/11 [Last Taken 06/25/18 05:00] Multivitamins W-Minerals/Lut [CENTRUM SILVER TABLET] 1 each PO Q2D 04/09/11 [ Last Taken Unknown] Sertraline HCl [Zoloft 50mg (*)] 50 mg PO DAILY 04/09/11 [Last Taken 06/24/18 21 :00] Vit A/Vit C/Vit E/Zinc/Copper [Preservision Areds Tablet] 1 each PO BID [Last Taken Unknown] Clindamycin HCl [Clindamycin] 1,200 mg PO AD 06/20/18 [Last Taken Unknown] Psyllium Husk (with Sugar) [Metamucil Packet] 1 each PO DAILY 06/20/18 [Last Taken Unknown] - NPO status NPO Status: no food or drink >8 hours - Smoking Hx Smoking Status: Former smoker ANE Labs/Vital Signs - Vital Signs Height: 5 ft 8.9 in Weight: 74.8 kg ANE Physical Exam - Airway Neck exam: FROM Mallampati Score: Class 2 Mouth exam: normal dental/mouth exam - Pulmonary Pulmonary: no respiratory distress - Cardiovascular Cardiovascular: regular rate and rhythym - ASA Status ASA Status: III ANE Anesthesia Plan Anesthesia Plan: MAC Lines/Monitors: central line
[2018-07-02] MEDS ORDERED: fentaNYL 100 MCG/2 ML INJ ONE (08:06)
[2018-07-02] MEDS ORDERED: PROPOFOL/EMULSION 500 MG/50 ML BOTTLE IV ONE ×2 (08:06→09:20)
[2018-07-02] MEDS ORDERED: PROTAMINE SULFATE 50 MG/5 ML VIAL IVP ONE (09:11)
[2018-07-02] MEDS ORDERED: IBUPROFEN 800 MG TAB PO PRN (10:07)
[2018-07-02] MEDS ORDERED: ATROPINE SULFATE 1 MG/10 ML SYR IVP PRN (10:07)
[2018-07-02] MEDS ORDERED: HYDROmorphONE/DILAUDID 1 MG/ML INJ IVP PRN (10:07)
[2018-07-02] MEDS ORDERED: ONDANSETRON DISINTEGRATING 4 MG TAB PO PRN (10:07)
[2018-07-02] MEDS ORDERED: hydrALAZINE 20 MG/ML VIAL IVP PRN (10:07)
[2018-07-02] MEDS ORDERED: ONDANSETRON 4 MG/2 ML VIAL IVP PRN (10:07)
[2018-07-02] MEDS ORDERED: oxyCODONE IR 5 MG TAB PO PRN (10:07)
[2018-07-02] MEDS ORDERED: NALOXONE HCL 0.4 MG/ML INJ IVP PRN (10:23)
--- NOTE | 2018-07-02 10:56 | CPIP ---
DATE OF PROCEDURE: 07/02/2018 INDICATION FOR PROCEDURE: Severe bioprosthetic aortic valve degeneration. CO-SURGEONS: Dr. Porter Andrade, Dr. Ira Hitchcock, Dr. Misty Crain. PROCEDURES: 1. Nonselective left groin sheathogram. 2. Nonselective right groin sheathogram. 3. Upsizing of right groin to 40-Libyan sheath with double Perclose placements. 4. Crossing of aortic valve with AL1 catheter straight stiff Glidewire. 5. Placement of Medtronic CoreValve Evolut R 29 mm valve. 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 The patient's aortic valve had what appeared to be a fixed leaflet with merrill re AI. Given these findings, patient consented for the valve in valve with TAVR. DESCRIPTION OF PROCEDURE: After informed consent was obtained, the patient was brought to [facility] where he was then placed under MAC anesthesia. A central line was placed via the right IJV with temporary pacemaker while I placed the right ventricle with capture being assessed. 8-Libyan sheath in the lef t common artery verified angiographically. 6-Libyan sheath right in the common femoral artery verifi ed angiographically, upsized to an 8-Libyan sheath after the double Perclose placements. Valve was c rossed with AL1 catheter straight stiff Glidewire switched out for a pigtail catheter switched out fo r a Confida wire. Patient was administered a total of 12,000 heparin during the case. The right jim in had been upsized to a 14-Libyan sheath, Medtronic. After this was performed, the sheath was remov ed and a Medtronic CoreValve Evolut R 29 mm valve was advanced. This was deployed successfully acros s the aortic valve. After deployment, there was trivial to mild paravalvular leak noted with excelle nt hemodynamics. At this time, the wire was pulled back. The right groin was closed with double Per close placements. The left groin was closed with 8-Libyan Angio-Seal. Patient tolerated the procedu re well. No complications. IMPRESSION: Successful placement of Medtronic CoreValve Evolut R 29 mm valve by the transfemoral rou te for severe bioprosthetic aortic valve degeneration. PLAN: The patient will have a temporary pacemaker wire discontinued at this point because he already has a permanent pacemaker in place. Discontinue right IJ sheath when the AC is less than 200. The patient will be admitted to PCU. Further orders following clinical course. /[id number]/MODL
--- NOTE | 2018-07-02 11:07 | GOP ---
DATE OF OPERATION: 07/02/2018 SURGEON: Porter Andrade MD PREOPERATIVE DIAGNOSIS: Severe symptomatic prosthetic valve aortic stenosis. POSTOPERATIVE DIAGNOSIS: Severe symptomatic prosthetic valve aortic stenosis PROCEDURE PERFORMED: FINDINGS: DESCRIPTION OF PROCEDURE: Patient taken to the liaison inspection laboratory assistant, placed on the table in supine position. Af ter the administration of IV antibiotics and monitored anesthetic, a transvenous pacemaker was positi oned through the right internal jugular vein into the right ventricle and tested and found to be func tioning appropriately. Next, after sterile prep and drape, access to the right common femoral artery was obtained percutaneously with 2 Perclose devices deployed. On the left side, an 8-[place]izen [place] sheath was placed into the left common femoral artery. The patient was then fully heparinized. We then, ov er a wire, dilated the vessel and placed a 14-[place]izen [place] sheath. Through this, we crossed the aortic dennis ve and placed the Confida wire into the left ventricle. With myself in position [address] Acosta in position 2, we then deployed across the prosthetic valve without difficulty. We did recapture twice but ultimately had an excellent result both visually and hemodynamically. Having completed this, no w the device was then removed from the right common femoral artery. This was closed with the Perclos e devices. Echocardiography confirmed that the device had adequate hemodynamics and there was no sig nificant leak. Protamine was administered. The sheath on the left side was pulled as well. The [facility] has a permanent pacemaker so the TVP was also removed and [facility] condition. PROCEDURE PERFORMED: Transcatheter aortic valve replacement using a 29 mm Evolut R device delivered by a right femoral approach using a valve in valve technique. COMPLIANCE MGR: Giovanni Acosta MD. HISTORY: The patient is an 83-year-old gentleman who had previously undergone surgical aortic valve replacement using a 27 mm bovine pericardial valve. 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 He is maria luz mmended to undergo transcatheter aortic valve replacement. /[id number]/MODL
--- NOTE | 2018-07-02 11:30 | PDMN ---
Medical Necessity Medical necessity: 83 yo s/p TAVR, [facility] S1320 Aortic Valve Replacement, Transcatheter, [facility] only
[2018-07-02] MEDS ORDERED: CLINDAMYCIN 150 MG CAP PO PRN (12:45)
--- NOTE | 2018-07-02 13:44 | ECHO ---
[email or web address] [place] [id number] Main: [phone] Fax: Transthoracic Echocardiogram Name: PAUL ZAPATA MR#: [id number] Study Date: 07/02/2018 Study Time: 07:09 AM Date of : 1935 Age: 83 year(s) Height: ( ) Weight: ( ) BSA: Gender: Male Examination: Limited Echo Indication: Pre and post TAVR Image Quality: Adequate Contrast: Requested by: Giovanni Acosta BP: / Heart Rate: Rhythm: Indication: Pre and post TAVR Procedure Staff Dinker: Irma Schmidt [facility] Reading Physician: Ira Hitchcock MD Requesting Provider: Conclusions: Successful implantation of a #29 Medtronic R TAVR Measurements: Chambers Valvular Assessment AV/MV Valvular Assessment TV/PV Normal Normal Normal Name Value Range Name Value Range Name Value Range LVOTd 2.1 cm 2.1 cm mm AV meanP mmHg ( - ) LVEF (BP): 60 % (>=55 %) SELENA (VTI): 2.5 cm ( - ) Continued Measurements: Findings: Exam Comments: Pre TAVR: There is a bioprosthetic AVR with severe aortic regurgitation. Mild MR. No pericardial effusion. Estimated EF 60%. Normal LV wall motion Post TAVR: Normal LV systolic function and normal wall motion. There is mild aortic regurgitation. AV mean gradient 7mmHg and estimated SELENA 2.5cm2. There is mild mitral regurgitation. No pericardial effusion. (No Signature Object) Patient: PAUL ZAPATA Study Date: 07/02/2018 Page 1 of 1 07:09 AM [id number]
[2018-07-02] MEDS: ACETAMINOPHEN 325 MG TAB PO SCH ×3 (14:40→23:45)
[2018-07-02] MEDS: PRESERVISION AREDS2 FORMULA EYE VIT 1 EACH PO SCH (20:42)
[2018-07-02] MEDS: APIXABAN 5 MG TAB PO SCH (20:42)
[2018-07-02] MEDS: ALPRAZolam 0.25 MG TAB PO SCH (20:42)
[2018-07-03 04:48] LABS: PLATELET COUNT 121 10^3/uL (150-400)
--- NOTE | 2018-07-03 06:56 | PDCARPN ---
Cardiology Progress Note Chief Complaint: SOB Assessment/Plan: Assessment: s/p CAMRON TAVR Plan: 07/03/18 06:55 doing well OOB IS check echo Subjective: doing well Reviewed/Discussed With: multidisciplinary team Time Spent with Patient: greater than 25 minutes Time Spent with Patient: Greater than 25 minutes spent on this patients care, greater than 50% of time spent counseling, educating, and coordinating care regarding the above mentioned plan. Objective: Vital Signs (8 Hrs) Temp Pulse Resp BP Pulse Ox 07/03/18 03:39 37.2 C 70 12 119/68 97 07/03/18 00:01 37.0 C 65 19 156/71 H 96 Intake/Output (24 Hrs) 07/02/18 07/03/18 07/04/18 05:59 05:59 05:59 Intake Total 1490 Output Total 200 Balance 1290 Intake: Oral (ml) 590 IV Intake (ml) 900 Output: Urine (ml) 200 Urinal 200 Other: Weight 74.8 kg Output Comment Toilet unmeasured Number of Voids Toilet 3 Result Diagrams: 07/03/18 03:16 07/03/18 03:16 - Physical Exam Constitutional: healthy appearing Eyes: PERRL Ears, Nose, Mouth, Throat: moist mucous membranes Cardiovascular: regular rate and rhythm Peripheral Pulses: 1+: femoral (R), femoral (L) Respiratory: clear to auscultate bilat Gastrointestinal: normoactive bowel sounds Genitourinary: no suprapubic tenderness Skin: no rashes Musculoskeletal: no muscular tenderness Neurologic: AAOx3 Psychiatric: cooperative Lymph, Heme, Immunologic: no lymphadenopathy ICD10 Worksheet Patient Problems: Problems Problem Status Onset Chronotropic incompetence Acute
[2018-07-03 07:43] VITALS: BP 162/88
[2018-07-03] MEDS: ALPRAZolam 0.25 MG TAB PO SCH (08:45)
[2018-07-03] MEDS: APIXABAN 5 MG TAB PO SCH (08:46)
[2018-07-03] MEDS: PRESERVISION AREDS2 FORMULA EYE VIT 1 EACH PO SCH (08:46)
[2018-07-03] MEDS: ACETAMINOPHEN 325 MG TAB PO SCH (08:46)
[2018-07-03] MEDS ORDERED: SERTRALINE HCL 50 MG TAB PO SCH (09:00)
[2018-07-03] MEDS ORDERED: MULTIVITAMINS 1 EACH TAB PO SCH (09:00)
[2018-07-03] MEDS ORDERED: DILTIAZEM CD 120 MG CAP PO SCH (09:00)
[2018-07-03] MEDS ORDERED: PSYLLIUM METAMUCIL 1 PKT PO SCH (09:00)
--- NOTE | 2018-07-03 09:12 | ECHO ---
[email or web address] [address] [address] Main: [phone] Fax: Transthoracic Echocardiogram Name: PAUL ZAPATA MR#: [id number] Study Date: 07/03/2018 Study Time: 08:18 AM Date of : 1935 Age: 83 year(s) Height: 175.3 cm (69 in.) Weight: 74.39 kg (164 lb.) BSA: 1.9 m2 Gender: Male Examination: Echo Indication: Post TAVR Image Quality: Good Contrast: Requested by: Giovanni Acosta BP: 162 mmHg/88 mmHg Heart Rate: Rhythm: Indication: Post TAVR Procedure Staff Electrician Outside: Hillary Garcia RDCS Reading Physician: Giovanni Acosta MD Requesting Provider: Conclusions: Mild concentric LV hypertrophy. Normal global systolic LV function. The ejection fraction is estimated to be 70-75 %. Trivial mitral valve regurgitation. There is no aortic valve regurgitation. Core valve in place. AV max PG is 24mmHG. AV mean PG is 13mmHG.. Mild tricuspid regurgitation is present. RVSP is 33mmHG.. Measurements: Chambers Valvular Assessment AV/MV Valvular Assessment TV/PV Normal Normal Normal Name Value Range Name Value Range Name Value Range IVSd (2D): 1.1 cm (0.6 cm-1.1 AV meanP mmHg ( - ) TR Vmax: 2.65 mm/s ( - ) cm) SELENA (VTI): 1.6 cm ( - ) TR PGmax: 28 mmHg ( - ) LVDd (2D): 5.2 cm (4.2 cm-5.9 MV E Vmax: 0.67 m/s ( - ) syst. PAP: 33 mmHg ( - ) cm) MV A Vmax: 0.81 m/s ( - ) LVDs (2D): 3.4 cm (2.1 cm-4 MV E/A: 0.83 ( - ) cm) LVPWd (2D): 1.1 cm (0.6 cm-1 cm) LVOTd 2.0 cm 2.0 cm mm LVEF (BP): 72 % (>=55 %) EF Range: 70-75 % Continued Measurements: Chambers Valvular Assessment AV/MV Valvular Assessment TV/PV Name Value Name Value Name Value Patient: PAUL ZAPATA Study Date: 07/03/2018 Page 1 of 2 08:18 AM LADs: 3.8 cm MV E' Septal: 0.05 m/s CVP (est.): 5 mmHg LADs Lon.1 cm MV E/E' Septal: 14.30 LA Area: 24.8 cm2 MV E/E' Lateral: 9.20 Findings: Left Ventricle: Normal size left ventricle. Mild concentric LV hypertrophy. Normal global systolic LV function. The ejection fraction is estimated to be 70-75 %. No regional wall motion abnormality. Diastolic dysfunction is indeterminate.. Right Ventricle: Normal size right ventricle. There is a pacemaker lead noted in the right ventricle. Left Atrium: The left atrium is mildly dilated. 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 Right Atrium: The right atrium is normal in size. Mitral Valve: Mild mitral annular calcification. Trivial mitral valve regurgitation. Aortic Valve: There is no aortic valve regurgitation. Core valve in place. AV max PG is 24mmHG. AV mean PG is 13mmHG.. Tricuspid Valve: The tricuspid valve is normal in appearance and function. Mild tricuspid regurgitation is present. The pulmonary artery pressure is normal. RVSP is 33mmHG.. Pulmonic Valve: The pulmonic valve is normal in appearance and function. Trivial pulmonic valve regurgitation. Aorta: The aorta is normal. Pericardium: No pericardial effusion. (No Signature Object) Patient: PAUL ZAPATA Study Date: 07/03/2018 Page 2 of 2 08:18 AM [id number]
--- NOTE | 2018-07-03 09:40 | ASMTCMCOM ---
CM Note CM Note Notes: Patient is s/p TAVR on 07/02. No anticipated CM needs at this time. Lives at home with supportive . Discussed with RN who confirms. CM available for changes/needs. Plan: Anticipate home independent. Date Signed: 07/03/2018 09:39 AM Electronically Signed By:Stephanie Sanders RN
--- NOTE | 2018-07-03 12:27 | ASMTLACE ---
AAYUSH Length of stay for Answers: 1 day current admission Acuity / Level of Answers: Yes Care: Did the patient have an inpatient admission? Comorbidities - select Answers: Congestive heart failure all that apply # of Emergency department Answers: 1-2 visits in the last 6 months Social determinants Answers: Mental health diagnosis (anxiety, depression, pers onality disorders, etc.) Score: 10 Date Signed: 07/03/2018 12:26 PM Electronically Signed By:Stephanie Sanders RN
--- NOTE | 2018-07-03 12:54 | GDS ---
[f rep st] DISCHARGE SUMMARY DISCHARGE DIAGNOSIS: Transcatheter aortic valve replacement. HOSPITAL COURSE: Briefly, this is an 83-year-old male with history of severe bioprosthetic aortic va lve replacement dysfunction with severe regurgitation and symptomatic shortness of breath. The patie nt was evaluated by CT Surgery and deemed to be a suitable candidate for TAVR valve and valve procedu re. The patient underwent successful TAVR procedure on 07/02/2018 with Medtronic CoreValve Evolut R. Postprocedure, the patient has done very well. His echocardiogram 24 hours shows a normally functi oning aortic valve bioprosthesis replacement with no perivalvular leak, normal ejection fraction. Th e patient was discharged home this morning with his home medications including his Eliquis. He will follow up in the office in 1 week's time. /[id number]/MODL
--- NOTE | 2018-07-03 16:40 | CPEKG ---
Test Reason : OPEN Blood Pressure : / mmHG Vent. Rate : 070 BPM Atrial Rate : 071 BPM P-R Int : 154 ms QRS Dur : 101 ms QT Int : 415 ms P-R-T Axes : -53 074 060 degrees QTc Int : 448 ms Sinus rhythm Confirmed by Lev Thao ([id number]) on 07/03/2018 4:40:36 PM Referred By: Giovanni Acosta Confirmed By:Lev Thao
== END 2018-07-03 13:20 | disposition home or self-care (01) | DRG 267 ==
LOC: FCATH 06:16 → F2W 10:07
PROVIDERS: ADMIT Internal Medicine Cardiovascular Disease; ATTEND Internal Medicine Cardiovascular Disease
PROC: 02RF38Z Replacement of Aortic Valve with Zooplastic Tissue, Percutaneous Approach (ICD-10-PCS; principal; 2018-07-03)
DX: T82.09XA Other mechanical complication of heart valve prosthesis, initial encounter (principal); I35.1 Nonrheumatic aortic (valve) insufficiency; M17.2 Bilateral post-traumatic osteoarthritis of knee; E78.00 Pure hypercholesterolemia, unspecified; I49.1 Atrial premature depolarization; Z00.6 Encounter for examination for normal comparison and control in clinical research program
CPT/HCPCS: C1760; C1769; C1894; J0690; J1644; J2704; J2720; J3010; Q9967

== ENCOUNTER → 2018-07-10 | Outpatient (CLI) | payer OTHER, BC | LOC: BHFA 13:15 | PROVIDERS: ATTEND Internal Medicine Cardiovascular Disease | DX: Z95.2 Presence of prosthetic heart valve (principal) ==

== ENCOUNTER → 2018-08-09 | Outpatient (CLI) | payer OTHER, BC | LOC: BHFA 10:00 | PROVIDERS: ATTEND Internal Medicine Cardiovascular Disease | DX: Z95.2 Presence of prosthetic heart valve (principal) ==

== ENCOUNTER 2018-10-17 11:46 | Emergency (ER) | payer OTHER ==
--- NOTE | 2018-10-17 12:36 | EDPHY ---
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 Patient was concerned that he had a blood clot. Patient states that he had a sock like appearance around his right ankle. There is mild discoloration and swelling. He had mild discomfort. He states the symptoms are improved at this point. Patient denies any chest pain or shortness of breath. No other complaints of fluid overload. No distention. Patient currently is on Eliquis. REVIEW OF SYSTEMS: 10 systems were reveiwed and are negative with the exception of the elements mentioned in the history of present illness. Past Medical/Surgical History: Includes anxiety, depression, hypertension, bradycardia Past surgical history: Includes aortic valve replacement, ablation, TAVR, pacemaker Smoking Status: Former smoker Physical Exam: Vitals noted GENERAL: Well-appearing, in no acute distress, alert. HEENT: Eyes normal to inspection, normal pharynx, no signs of dehydration. NECK: Normal, supple. RESPIRATORY: Clear to auscultation bilaterally, no rales, rhonchi or wheezing. CVS: Regular rate and rhythm, no rubs, murmurs, or gallops. ABDOMEN: Soft, nontender, nondistended, no organomegaly. BACK: Normal to inspection, no CVA tenderness. SKIN: Normal color, no rash, warm, dry. No pallor. EXTREMITIES: Patient has minimal edema around his right ankle. This is slightly more than the left. There is mild skin discoloration similar to old bruising. No cords. No Homans sign. Neurovascular intact distally. NEURO/PSYCH: Alert and oriented, normal mood and affect, normal motor sensory exam. Constitutional: Initial Vital Signs Temperature (C) 36.5 C 10/17/18 11:50 Heart Rate 71 10/17/18 11:50 Respiratory Rate 16 10/17/18 11:50 Blood Pressure 138/96 H 10/17/18 11:50 O2 Sat (%) 93 10/17/18 11:50 O2 Delivery Mode Room Air Allergies/Adverse Reactions: penicillin G [Penicillin G] Allergy (Unknown, Verified 04/18/18 08:43) Unknown Sulfa (Sulfonamide Antibiotics) Allergy (Unknown, Verified 04/18/18 08:43) Unknown amoxicillin Allergy (Verified 04/18/18 08:43) azithromycin Allergy (Verified 04/18/18 08:43) enalapril Allergy (Verified 04/18/18 08:43) enalaprilat Allergy (Verified 04/18/18 08:43) Home Medications: Medication Instructions Recorded ALPRAZolam [Xanax 0.5 MG (*)] 0.5 mg PO BID 04/09/11 Multivitamins W-Minerals/Lut 1 each PO Q2D 04/09/11 [CENTRUM SILVER TABLET] Sertraline HCl [Zoloft 50mg (*)] 50 mg PO DAILY 04/09/11 Vit A/Vit C/Vit E/Zinc/Copper 1 each PO BID 09/18/17 [Preservision Areds Tablet] Apixaban [Eliquis] 5 mg PO BID #60 tab 04/18/18 Diltiazem HCl [Diltiazem 24Hr Cd] 120 mg PO DAILY #30 cap.er.24h 04/18/18 Clindamycin HCl [Clindamycin] 1,200 mg PO AD 06/20/18 Psyllium Husk (with Sugar) 1 each PO DAILY 06/20/18 [Metamucil Packet] Medical Decision Making - Diagnostics Imaging Results: Imaging Impressions Extremity Venous Study 10/17/18 12:37 Impression: No deep venous thrombosis right leg. Findings and recommendations discussed with Emergency Department physician, CORIN NANCE at 13:10 hour, 10/17/2018. Final report concurs with initial preliminary interpretation. ED Course/Re-evaluation: In the emergency department I discussed possible etiologies with the patient. I answered all his questions. IV was placed. Laboratory studies, EKG and ultrasound were ordered. Ultrasound: Please refer the dictated report. No acute disease noted. CBC is notable for slight anemia. Chemistry panel is unremarkable. BNP is in the 500s. I discussed the results with the patient. I answered all his questions. Differential Diagnosis: My differential includes but is not limited to DVT, arterial occlusion, CHF, ecchymosis, cellulitis - Data Points Laboratory Results: Laboratory Results 10/17/18 13:10 10/17/18 13:10 10/17/18 10/17/18 10/17/18 13:42 13:10 13:10 WBC 5.15 10^3/uL 10^3/uL (3.80-9.50) RBC 4.39 10^6/uL L 10^6/uL (4.40-6.38) Hgb 14.2 g/dL g/dL (13.7-17.5) Hct 39.4 % L % (40.0-51.0) MCV 89.7 fL fL (81.5-99.8) MCH 32.3 pg pg (27.9-34.1) MCHC 36.0 g/dL g/dL (32.4-36.7) RDW 14.0 % % (11.5-15.2) Plt Count 112 10^3/uL L 10^3/uL (150-400) MPV 9.9 fL fL (8.7-11.7) Neut % (Auto) 70.3 % % (39.3-74.2) Lymph % (Auto) 16.7 % % (15.0-45.0) Cassia % (Auto) 10.5 % % (4.5-13.0) Eos % (Auto) 1.7 % % (0.6-7.6) Baso % (Auto) 0.6 % % (0.3-1.7) Nucleat RBC Rel Count 0.0 % % (0.0-0.2) Absolute Neuts (auto) 3.62 10^3/uL 10^3/uL (1.70-6.50) Absolute Lymphs (auto) 0.86 10^3/uL L 10^3/uL (1.00-3.00) Absolute Monos (auto) 0.54 10^3/uL 10^3/uL (0.30-0.80) Absolute Eos (auto) 0.09 10^3/uL 10^3/uL (0.03-0.40) Absolute Basos (auto) 0.03 10^3/uL 10^3/uL (0.02-0.10) Absolute Nucleated RBC 0.00 10^3/uL 10^3/uL (0-0.01) Immature Gran % 0.2 % % (0.0-1.1) Immature Gran # 0.01 10^3/uL 10^3/uL (0.00-0.10) Sodium 138 mEq/L mEq/L (135-145) Potassium 4.4 mEq/L mEq/L (3.5-5.2) Chloride 105 mEq/L mEq/L (97-110) Carbon Dioxide 25 mEq/l mEq/l (22-31) Anion Gap 8 mEq/L mEq/L (6-14) BUN 25 mg/dL H mg/dL (7-23) Creatinine 1.1 mg/dL mg/dL (0.7-1.3) Estimated GFR > 60 Glucose 87 mg/dL mg/dL (70-100) Calcium 9.1 mg/dL mg/dL (8.5-10.4) POC Troponin I 0.01 ng/mL ng/mL (0.00-0.08) NT-Pro-B Natriuret Pep 526 pg/mL H pg/mL (0-450) Point of Care Test Results: Chemistry 10/17/18 13:42 POC Troponin I 0.01 ng/mL ng/mL (0.00-0.08) Departure - Departure Disposition: Home, Routine, Self-Care Clinical Impression: Right leg swelling Condition: Good Instructions: Leg Edema (ED) Additional Instructions: Return with increasing pain, swelling, weakness, numbness or any other concerns. Referrals: Baylee Collins MD [Primary Care Provider] - 2-3 days without fail
[2018-10-17 13:39] VITALS: BP 147/76
[2018-10-17 13:58] LABS: PLATELET COUNT 112 10^3/uL (150-400)
--- NOTE | 2018-10-17 14:47 | CPEKG ---
Test Reason : OPEN Blood Pressure : / mmHG Vent. Rate : 060 BPM Atrial Rate : 060 BPM P-R Int : 212 ms QRS Dur : 104 ms QT Int : 459 ms P-R-T Axes : -80 066 066 degrees QTc Int : 459 ms Atrial-paced complexes Borderline prolonged MA interval Consider anterior infarct Confirmed by Corin Rushing [id number]) on 10/17/2018 2:46:28 PM Referred By: CORIN RUSHING Confirmed By:Corin Rushing
== END 2018-10-17 14:14 | disposition home or self-care (01) ==
DX: M79.89 Other specified soft tissue disorders (principal); Z95.4 Presence of other heart-valve replacement
CPT/HCPCS: 84484-ER